=== PATIENT | female | born 1975 | race Caucasian/White ===

== ENCOUNTER 2024-01-15 09:14 | Emergency (ER) | payer OTHER ==
[~2024-01-15] VITALS: Ht 170.2 cm; Wt 83.1 kg
[2024-01-15 09:16] VITALS: BP 115/77; PULSE 75; RESP 20; TEMP 97.7; O2SAT 99
[2024-01-15 09:28] VITALS: O2SAT 99
[2024-01-15 10:06] VITALS: O2SAT 99
== END 2024-01-15 10:22 | disposition home or self-care (01) ==
LOC: MED 09:14
DX: F07.81 Postconcussional syndrome (principal); R22.43 Localized swelling, mass and lump, lower limb, bilateral; R22.33 Localized swelling, mass and lump, upper limb, bilateral
CPT/HCPCS: 86592; 87491; 99283